=== PATIENT | female | born 1965 | race Caucasian/White ===

== ENCOUNTER 2018-06-03 11:30 | Outpatient (AMBR) | payer MEDICAID, SELFPAY ==
--- NOTE | 2018-05-09 10:24 | PT.ODAYNRPT ---
PT Outpatient Daily Note Date of Service: May 09, 2018 OP Daily Note Visit Reasons: Pain Outpatient Physical Therapy Treatment Date: 05/09/18 Subjective: pt feels more pain on the L hip/quad area today due to compensation. pt states after 20 mins of standing her knees swell very big. Objective: see flow sheet. Assessment: pt was not able to SLR plus ER due to pain on the L quads so used thera bar for a quick STM to the quads. pt did feel the pain from the pressure but because of the tightness of the muscles. advised pt to continue STM at home to decrease the tension. added new exercises to increase the strengthen of the hip as well as the BLE. pt was fatigued and SOB post ther ex. educated pt about ice pack home for swelling. Plan: continue POC per PT. Length of Time (minutes) of Treatment: 30 Minutes Office Procedures PT Procedures PT Date of Service: 05/09/18 Therapeutic Exercise 30 minutes: Yes
--- NOTE | 2018-05-13 13:28 | PT.ODAYNRPT ---
PT Outpatient Daily Note Date of Service: May 13, 2018 OP Daily Note Visit Reasons: Pain Outpatient Physical Therapy Treatment Date: 05/13/18 Subjective: pt reported feeling sore today from ADLs. Objective: see flow sheet. Assessment: pt was ambulating with antalgic gait due to soreness and increased in pain. pt was going through the exercises at slower pace than usual. decreased the number of reps with exercise due to pain. during SAQs pt's R knee grinds and pops causing more discomfort. SLS withheld today due to complaints but shoulder resume next visit. Plan: continue POC per PT. Length of Time (minutes) of Treatment: 30 Minutes Office Procedures PT Procedures PT Date of Service: 05/09/18 Therapeutic Exercise 30 minutes: Yes PT Procedures PT Date of Service: 05/13/18 Therapeutic Exercise 30 minutes: Yes
--- NOTE | 2018-06-03 13:23 | PT.ODAYNRPT ---
PT Outpatient Daily Note Date of Service: June 03, 2018 OP Daily Note Pediatric or Adult Patient: Adult PT >13 Visit Reasons: Pain Outpatient Physical Therapy Treatment Date: 06/03/18 Subjective: Patient was complaining of pain today and fatigue from yesterday as she was taking care of her grandchild. Objective: pls see FS Assessment: patient were given strengthening ex on BLE, kinesiotaping to support her knee. Patient were able to tolerate all the mgt given and were given restbreaks as needed to prevent fatigue and increase pain. As per patient the kinesiotape help her before. She is pending measurement of her knee brace. Plan: to continue POC toward goals. Pain Present Currently: Yes Length of Time (minutes) of Treatment: 30 Minutes Office Procedures PT Procedures PT Date of Service: 05/09/18 Therapeutic Exercise 30 minutes: Yes PT Procedures PT Date of Service: 05/13/18 Therapeutic Exercise 30 minutes: Yes
== END 2018-06-04 23:59 | disposition home or self-care (01) ==
PROVIDERS: PCP Physician Assistant; Referring Provider Physician Assistant; Visit Provider Orthopaedic Surgery
DX: M22.42 Chondromalacia patellae, left knee (principal); M22.41 Chondromalacia patellae, right knee; M62.81 Muscle weakness (generalized); M25.561 Pain in right knee; M25.562 Pain in left knee
CPT/HCPCS: 97110